=== PATIENT | female | born 1975 | race Asian ===

== ENCOUNTER 2019-08-29 18:47 | Emergency (ER) | payer BC, SELFPAY ==
[2019-08-29 18:55] VITALS: BP 128/80; PULSE 117; RESP 18; TEMP 36.4; O2SAT 100; BMI 18.8
--- NOTE | 2019-08-29 19:01 | DI.RAD.S_ITS ---
PROCEDURE: XR CHEST 2V INDICATIONS: Shortness of breath TECHNIQUE: 2 views of the chest were acquired. COMPARISON: None. FINDINGS: Surgical changes and devices: Mammoplasty implants are incidentally noted. Lungs and pleura: Lungs are clear. No pleural effusions or pneumothorax. Mediastinum: Mediastinal contours are normal. Heart size is normal. Bones and chest wall: No suspicious bony abnormalities. Soft tissues appear unremarkable. IMPRESSION: Clear lungs, without an acute process identified. Dictated by: Simone Hernandez M.D. on 08/29/2019 at 19:36 Approved by: Simone Hernandez M.D. on 08/29/2019 at 19:36
[2019-08-29 19:33] LABS: Add Manual Diff / Slide Review NO; Basophils Absolute Auto 0 /uL (0-100); Basophils Percent Auto 0.3 % (0-2); Eosinophils Absolute Auto 0 /uL (0-450); Eosinophils Percent Auto 0.1 % (2-4); Hematocrit 37.6 % (36-46); Hemoglobin 12.6 g/dL (12.0-16.0); Lymphocytes Absolute Auto 1200 /uL (1100-4500); Lymphocytes Percent Auto 18.6 % (25-40); Mean Corpuscular HGB Conc 33.6 % (30-36); Mean Corpuscular Hemoglobin 28.7 PG (26-34); Mean Corpuscular Volume 85.3 fL (80-100); Monocytes Absolute Auto 300 /uL (0-900); Monocytes Percent Auto 5.4 % (3-14); Neutrophils Absolute Auto 4800 /uL (1500-7000); Neutrophils Percent Auto 75.6 % (50-75); Platelet Count 372 X10^3/uL (150-400); Red Cell Distribution Width 14.1 % (11.6-14.8); White Blood Cell Count 6.4 X10^3/uL (4.5-11.0)
[2019-08-29 19:44] LABS: Alanine Aminotransferase 14 IU/L (<35); Albumin 4.3 g/dL (3.5-5.0); Albumin Globulin Ratio 1.1 (1.0-2.8); Alkaline Phosphatase 58 U/L (38-126); Aspartate Aminotransferase 27 IU/L (14-36); Bilirubin Total 0.3 mg/dL (0.2-1.3); Blood Urea Nitrogen 11 mg/dL (7-17); Carbon Dioxide 28 mmol/L (22-32); Chloride 101 mmol/L (98-107); Creatine Kinase 49 U/L (30-135); Estimated Glomerular Filt Rate > 60.0 mL/min (>60); Globulin 3.8 g/dL (1.7-4.1); Glucose 100 mg/dL (70-100); HEMOLYSIS < 15 (0-50); Lipase 122 U/L (23-300); Potassium 3.8 mmol/L (3.4-5.1); Sodium 141 mmol/L (137-145); Total Protein 8.1 g/dL (6.3-8.2)
[2019-08-29] MEDS: MAG HYDROX/ALUMINUM/SIMETH SUS 20 ML, LIDOCAINE VISCOUS 2% 15 ML PO (19:44)
[2019-08-29 19:56] LABS: Troponin I < 0.012 ng/mL (0.01-0.034)
[2019-08-30] MEDS: KETOROLAC 60 MG/2 ML VIAL 30 MG IV (00:35)
[2019-08-30] MEDS: CYCLOBENZAPRINE 10 MG TABLET PO (00:35)
[2019-08-30] MEDS: PANTOPRAZOLE 40 MG VIAL IV (00:35)
[2019-08-30 01:13] LABS: Troponin I < 0.012 ng/mL (0.01-0.034)
[2019-08-30 01:31] VITALS: BP 113/80; PULSE 101; RESP 24; TEMP 37.3; O2SAT 99
--- NOTE | 2019-08-30 01:35 | ED.CHESTPAIN ---
HPI - Chest Pain General Chief Complaint: Chest Pain Stated Complaint: elevated HR, and low BP, chest tightness Time Seen by Provider: 08/29/19 20:33 Source: patient Mode of arrival: Ambulatory Limitations: no limitations History of Present Illness HPI narrative: CC: chest discomfort with tachycardia HPI: The patient is a 43-year-old female who came into the emergency department to evaluate chest discomfort which started at 3:00 a.m. a.m.. The chest discomfort woke the patient from sleep and was in excruciating episode of heartburn. She took Zantac and Pepcid without any relief. She took a small amount of Gaviscon which did not help. Her discomfort seemed to progress and get worse and was associated with shortness of breath. She stated that her chest felt tight. She went to [facility] and her blood pressure was normal but her heart rate was 135. She was advised to come to the emergency department but refused and went back to work. Her heart rate did not seem to improve so she came into the emergency department. The patient states that she never has had rapid heart rate except when she was for the 1st time. At that time she developed some chest tightness with shortness of breath. She denies a history of phlebitis or ever being on an anticoagulant. She has had no fall or injury. At 0000 the patient she is having no indigestion or heartburn as well as any chest pain. The patient was then complaining of neck and upper back pain that was 8/10 in intensity and was a dull achy discomfort which started at approximately noon. The patient denies ever smoking cigarettes. She has had no fever sweats but has had intermittent chills. She currently has a mild headache with neck and back pain. She has had mild shortness of breath without any cough. She has had mild chest discomfort associated with palpitations but no dizziness. She has been nauseous but has had no vomiting abdominal pain diarrhea melena or hematochezia. She has 7 siblings that have high blood pressure but no one has had a myocardial infarction. There is no family history of high cholesterol or hypertension. Related Data Previous Rx's Medication Instructions Recorded cyclobenzaprine 10 mg PO TID PRN #14 tab 08/30/19 naproxen [Naprosyn] 500 mg PO BID PRN #20 tab 08/30/19 pantoprazole [Protonix] 40 mg PO DAILY #20 tab 08/30/19 Allergies Allergy/AdvReac Type Severity Reaction Status Date / Time No Known Drug Allergies Allergy Verified 08/29/19 18:55 Review of Systems Review of Systems ROS Unobtainable: All systems reviewed & are unremarkable except as noted in HPI and below Patient History Social History Smoking Status: Never smoker Smoking Status: Never smoker Substance Use Type: does not use Exam Narrative Exam Narrative: PHYSICAL EXAM: CONSTITUTIONAL: Awake, Alert, Oriented, Coherent, Cooperative in NAD. Does not appear toxic or ill. HEAD: AT/NC EENT: PERRL, FROM of eyes, no discharge, No epistaxis or nasal drainage Oral mucosa is moist and pink, posterior pharynx is without erythema or exudate. NECK: Supple, no obvious JVD, Trachea is midline without stridor, SPINE: No gross deformity, there is diffuse tenderness to palpation along the cervical thoracic and upper lumbar spine that mimics the dip pain and discomfort she complains of involving her neck. There was no significant paraspinous muscle spasms but mild paraspinous muscle tenderness. THORAX: No deformity, retractions, chest wall tenderness, subcutaneous air or crepitice. LUNGS: Clear with symmetrical breath sounds without respiratory distress HEART: Normal heart tones, regular rhythm and rate without murmur. ABDOMEN: Soft, non-tender, normal bowel sounds without guarding, rebound, rigidity or palpable mass EXTREMITIES: No edema, cyanosis, deformity or tenderness. SKIN: No rash, bruising, petechiae or purpura. NEURO: Awake, alert, oriented, conversive, cranial nerves II-XII are symmetrical and normal, moves all 4 extremities and is ambulatory Initial Vital Signs Initial Vital Signs: Vital Signs Temperature 97.5 F L 08/29/19 18:55 Pulse Rate 117 H 08/29/19 18:55 Respiratory Rate 18 08/29/19 18:55 Blood Pressure 128/80 08/29/19 18:55 Pulse Oximetry 100 08/29/19 18:55 Course Course Course Narrative: 0125 the patient's chest pain back pain neck pain has significantly resolved and is no longer uncomfortable at this time. This occurred after the patient was given Protonix, Toradol and Flexeril. She was discharged to be seen in follow-up by her primary care physician. She was discharged home on Protonix 40 mg per day, Naprosyn 500 mg p.o. b.i.d., and Flexeril 10 mg t.i.d.. She was also advised that if she develops indigestion heartburn she needs to take a half to 3/4 to a full [place] cup full of Gaviscon or liquid antacid to neutralize the acid load in her stomach causing the discomfort. She was also advised to keep a log of her symptoms and follow up with her primary care physician. She may need to be referred to a medical office manager for and upper endoscopy. This appeared to be noncardiac chest discomfort. Orders Ordered: Discontinued Medications Al Hydrox/Mg Hydrox/Simethicone 20 ml/ Lidocaine HCl 15 ml 0 ml PO NOW ONE Stop: 08/29/19 19:38 Last Admin: 08/29/19 19:44 Dose: 35 ml Documented by: SULAIMAN Cyclobenzaprine HCl (Flexeril) 10 mg PO NOW ONE Stop: 08/30/19 00:27 Last Admin: 08/30/19 00:35 Dose: 10 mg Documented by: SULAIMAN Ketorolac Tromethamine (Toradol) 30 mg IV NOW ONE Stop: 08/30/19 00:27 Last Admin: 08/30/19 00:35 Dose: 30 mg Documented by: SULAIMAN Pantoprazole Sodium (Protonix) 40 mg IV NOW ONE Stop: 08/30/19 00:27 Last Admin: 08/30/19 00:35 Dose: 40 mg Documented by: SULAIMAN Vital Signs Vital signs: Vital Signs - 8 hr 08/30/19 01:31 08/30/19 01:51 Temperature 99.1 F Pulse Rate 101 H 102 H Respiratory Rate 24 19 Blood Pressure 104/66 Blood Pressure [Left Arm] 113/80 Pulse Oximetry 99 96 MDM - Chest Pain Lab Data Attestation: I reviewed the patient's lab results. Result diagrams: 08/29/19 19:20 08/29/19 19: Labs: Lab Results 08/29/19 08/29/19 08/30/19 Range/Units : 19:20 00:42 WBC 6.4 (4.5-11.0) X10^3/uL RBC 4.40 (4.0-5.2) X10^6/uL Hgb 12.6 (12.0-16.0) g/dL Hct 37.6 (36-46) % MCV 85.3 (80-100) fL MCH 28.7 (26-34) PG MCHC 33.6 (30-36) % RDW 14.1 (11.6-14.8) % Plt Count 372 (150-400) X10^3/uL Neut % (Auto) 75.6 H (50-75) % Lymph % (Auto) 18.6 L (25-40) % [place] % (Auto) 5.4 (3-14) % Eos % (Auto) 0.1 L (2-4) % Baso % (Auto) 0.3 (0-2) % Neut # (Auto) 4800 (1052-6329) /uL Lymph # (Auto) 1200 (9862-5294) /uL [place] # (Auto) 300 (0-900) /uL Eos # (Auto) 0 (0-450) /uL Baso # (Auto) 0 (0-100) /uL Sodium 141 (137-145) mmol/L Potassium 3.8 (3.4-5.1) mmol/L Chloride 101 (98-107) mmol/L Carbon Dioxide 28 (22-32) mmol/L BUN 11 (7-17) mg/dL Creatinine 0.50 L (0.52-1.04) mg/dL Estimated GFR > 60.0 (>60) mL/min BUN/Creatinine Ratio 22.0 (6-22) Glucose 100 (70-100) mg/dL Calcium 9.0 (8.4-10.2) mg/dL Total Bilirubin 0.3 (0.2-1.3) mg/dL AST 27 (14-36) IU/L ALT 14 (<35) IU/L Alkaline Phosphatase 58 (38-126) U/L Total Creatine Kinase 49 (30-135) U/L CK-MB (CK-2) TNP CK-MB (CK-2) Rel Index TNP Troponin I < 0.012 < 0.012 (0.01-0.034) ng/mL Total Protein 8.1 (6.3-8.2) g/dL Albumin 4.3 (3.5-5.0) g/dL Globulin 3.8 (1.7-4.1) g/dL Albumin/Globulin Ratio 1.1 (1.0-2.8) Lipase 122 (23-300) U/L Discharge Plan Departure Patient Disposition: Home Clinical Impression: Atypical chest pain, Heartburn, Chest pain due to GERD, Neck pain Back pain Qualifiers: Back pain location: thoracic back pain Chronicity: acute Back pain laterality: midline Qualified Code(s): M54.6 - Pain in thoracic spine Discharge Date/Time: 08/30/19 01:52 Instructions: DI for Gastroesophageal Reflux Disease (GERD), DI for Atypical Chest Pain, DI for Neck Pain, DI for Thoracic Back Pain Activity Restrictions/Additional Instructions: If you develop recurring indigestion heartburn take 3/4 stool full [place] cup full of Gaviscon or Mylanta or any other liquid antacid to neutralize the acid in your stomach. Take the Protonix 40 mg per day for the next 10 days. For neck and back pain take Naprosyn 500 mg twice a day as needed for pain and discomfort and Flexeril 10 mg 3 times a day for muscle spasms. You need to follow-up with your primary care physician in be recheck in 3-4 days. If you develop worsening pain and discomfort unrelieved by the medication she needs return to the emergency department. Prescriptions: New pantoprazole [Protonix] 40 mg tablet,delayed release (DR/EC) 40 mg PO DAILY Qty: 20 RF: 0 naproxen [Naprosyn] 500 mg tablet 500 mg PO BID PRN (Reason: pain) Qty: 20 RF: 0 cyclobenzaprine 10 mg tablet 10 mg PO TID PRN (Reason: muscle spasm) Qty: 14 RF: 0
[2019-08-30 01:51] VITALS: BP 104/66; PULSE 102; RESP 19; O2SAT 96
== END 2019-08-30 01:52 | disposition home or self-care (01) ==
PROVIDERS: Emergency Medicine; Emergency Provider Emergency Medicine
DX: R07.89 Other chest pain (principal); R12 Heartburn; K21.9 Gastro-esophageal reflux disease without esophagitis; M54.2 Cervicalgia; M54.6 Pain in thoracic spine
CPT/HCPCS: 36415; 71046; 80053; 82550; 83690; 84484; 85025; 93005; 96374; 96375; 99284; 99285; C9113; J1885